=== PATIENT | female | born 1945 | race Caucasian/White ===

== ENCOUNTER 2024-04-05 18:03 | Emergency (ER) | payer MEDICARE ==
[~2024-04-05] VITALS: Ht 170.2 cm; Wt 77.0 kg
[2024-04-05] MEDS ORDERED: BACOPA COMPLEX PO (18:38)
[2024-04-05] MEDS ORDERED: CATAPLEX (18:39)
[2024-04-05] MEDS ORDERED: [UNRECOGNIZED DRUG - OTHER] PO (18:39)
[2024-04-05] MEDS ORDERED: [UNRECOGNIZED DRUG - OTHER] (18:40)
[2024-04-05] MEDS ORDERED: SYMPLEX F PO (18:42)
[2024-04-05] MEDS ORDERED: [UNRECOGNIZED DRUG - OTHER] OU (18:43)
[2024-04-05] MEDS ORDERED: SUNMARK ALLERGY10 M1 PO (18:43)
[2024-04-05] MEDS ORDERED: [UNRECOGNIZED DRUG - OTHER] OU (18:44)
[2024-04-05] MEDS ORDERED: THERATEARS 0.60.6 ML OU (18:45)
[2024-04-05] MEDS ORDERED: XLEAR NS (18:46)
[2024-04-05 19:10] LABS: BASO # 0.05 K/mm3 (0.02-0.10); EOS # 0.31 K/mm3 (0.04-0.40); EOS % 3.9 % (1.0-5.0); HEMOGLOBIN 14.2 g/dL (12.5-16.0); MEAN CELL VOLUME 94 fl (78-100); MEAN CORPUSCULAR HEMOGLOBIN 30 pg (27-31); MEAN CORPUSCULAR HGB CONC 32 g/dL (33-37); MEAN PLATELET VOLUME 8.9 fl (7.4-10.4); MONO # 0.85 K/mm3 (0.20-0.80); NEU # 3.82 K/mm3 (1.40-6.50); PLATELET COUNT 246 K/mm3 (130-400); RED BLOOD COUNT 4.69 M/mm3 (4.10-5.30); RED CELL DISTRIBUTION WIDTH 12.6 % (11.5-14.5); WHITE BLOOD COUNT 7.9 K/mm3 (4.8-10.8)
[2024-04-05 19:17] LABS: SODIUM 141 mmol/L (136-145)
[2024-04-05 19:18] LABS: CALCIUM 9.2 mg/dL (8.3-10.5)
[2024-04-05 19:19] LABS: GLUCOSE 91 mg/dL (65-105); TOTAL PROTEIN 6.9 g/dL (6.2-8.1)
[2024-04-05 19:20] LABS: CARBON DIOXIDE 26 mmol/L (23-31)
[2024-04-05 19:21] LABS: TOTAL BILIRUBIN 0.5 mg/dL (0.2-1.2)
[2024-04-05 19:24] LABS: D-DIMER 0.26 mg/L FEU (0.15-0.50)
[2024-04-05 19:25] LABS: AST-SGOT 24 U/L (5-34)
[2024-04-05 19:26] LABS: ALT/SGPT 19 U/L (0-55)
[2024-04-05 19:33] LABS: TROPONIN-I < 0.030 ng/mL (0.00-0.033)
[2024-04-05] MEDS ORDERED: Bisacodyl 5 MG TAB PO PRN (20:45)
[2024-04-05] MEDS ORDERED: Nitroglycerin 2% Topical Oint 1 GM UD TD SCH (21:02)
[2024-04-05] MEDS ORDERED: Heparin 5,000 UNITS/ML 1 ML VIAL IV PRN (21:15)
[2024-04-05] MEDS ORDERED: Heparin 5,000 UNITS/ML 1 ML VIAL IV ONE (21:15)
[2024-04-05 21:41] VITALS: BP 123/90
[2024-04-05] MEDS ORDERED: LATANOPROST 2.2.5 ML OU (23:08)
[2024-04-05] MEDS ORDERED: COMBIGAN 0.2%-0.5 ML OP (23:08)
== END 2024-04-05 21:41 | disposition other institution (70) ==
LOC: ED 18:03 → MED/SURG 20:27 → ED 20:27 → MED/SURG 20:27 → ED 21:41
PROVIDERS: Physician Assistant
DX: R07.89 Other chest pain (principal); M54.6 Pain in thoracic spine

== ENCOUNTER 2024-04-05 20:27 | Inpatient (IN) | payer MEDICARE ==
[~2024-04-05] VITALS: Ht 167.6 cm; Wt 75.3 kg
[~2024-04-05 20:27] MED LIST: BACOPA COMPLEX PO; CATAPLEX; SUNMARK ALLERGY10 M1 PO; SYMPLEX F PO; THERATEARS 0.60.6 ML OU; XLEAR NS; [UNRECOGNIZED DRUG - OTHER]; [UNRECOGNIZED DRUG - OTHER] OU; [UNRECOGNIZED DRUG - OTHER] OU; [UNRECOGNIZED DRUG - OTHER] PO
[2024-04-05] MEDS ORDERED: Ondansetron 4 MG/2 ML VIAL IV PRN (21:45)
[2024-04-05] MEDS ORDERED: Bisacodyl 5 MG TAB PO PRN (21:45)
[2024-04-05] MEDS ORDERED: Nitroglycerin 2% Topical Oint 1 GM UD TD SCH (21:49)
[2024-04-05] MEDS ORDERED: Heparin 5,000 UNITS/ML 1 ML VIAL IV PRN ×3 (22:00→22:15)
[2024-04-05] MEDS ORDERED: Heparin 5,000 UNITS/ML 1 ML VIAL IV ONE ×3 (22:00→22:15)
[2024-04-05 22:11] VITALS: BP 123/95
[2024-04-05] MEDS ORDERED: Latanoprost 0.005% Ophth Soln 2.5 ML BOTTLE OP SCH (22:59)
[2024-04-05] MEDS ORDERED: LATANOPROST 2.2.5 ML OU (23:08)
[2024-04-05] MEDS ORDERED: COMBIGAN 0.2%-0.5 ML OP (23:08)
[2024-04-06 03:46] VITALS: BP 115/56; BP_SYST 56
[2024-04-06 07:25] VITALS: BP 168/61
[2024-04-06] MEDS ORDERED: Loratadine 10 MG TAB PO SCH (09:00)
== END 2024-04-06 08:55 | disposition short-term general hospital (02) | DRG 313 ==
LOC: MED/SURG 20:27
PROVIDERS: ADMIT Physician Assistant
DX: R07.9 Chest pain, unspecified (principal); E78.5 Hyperlipidemia, unspecified; I10 Essential (primary) hypertension
CPT/HCPCS: J1644

== ENCOUNTER 2024-06-21 16:10 | Emergency (ER) | payer MEDICARE ==
[~2024-06-21] VITALS: Ht 172.7 cm; Wt 77.8 kg
[~2024-06-21 16:10] MED LIST changes: +COMBIGAN 0.2%-0.5 ML OP; +LATANOPROST 2.2.5 ML OU
[2024-06-21] MEDS ORDERED: Tdap Vaccine 0.5 ML SYRINGE IM ONE (16:30)
[2024-06-21] MEDS ORDERED: LISINOPRIL10 MG PO (16:35)
[2024-06-21] MEDS ORDERED: ATORVASTATIN CA10 MG PO (16:35)
[2024-06-21 17:46] VITALS: BP 181/77
== END 2024-06-21 17:46 | disposition home or self-care (01) ==
LOC: ED 16:10
DX: S01.511A Laceration without foreign body of lip, initial encounter (principal); S80.811A Abrasion, right lower leg, initial encounter; M25.561 Pain in right knee; K08.89 Other specified disorders of teeth and supporting structures; Z91.040 Latex allergy status; Z23 Encounter for immunization; W01.198A Fall on same level from slipping, tripping and stumbling with subsequent striking against other object, initial encounter; Y93.01 Activity, walking, marching and hiking; Y92.480 Sidewalk as the place of occurrence of the external cause
CPT/HCPCS: 90715